=== PATIENT | female | born 1990 | race Two or more races ===

== ENCOUNTER 2019-10-12 08:22 | Emergency (ER) | payer OTHER ==
[~2019-10-12] VITALS: Ht 167.6 cm; Wt 54.4 kg
== END 2019-10-12 11:40 | disposition home or self-care (01) ==
LOC: ER 08:22
DX: J11.1 Influenza due to unidentified influenza virus with other respiratory manifestations (principal); J32.8 Other chronic sinusitis

== ENCOUNTER 2019-10-13 09:59 | Emergency (ER) | payer OTHER ==
[~2019-10-13] VITALS: Ht 167.6 cm; Wt 54.4 kg
== END 2019-10-13 11:10 | disposition left against medical advice (07) ==
LOC: ER 09:59
DX: Z53.20 Procedure and treatment not carried out because of patient's decision for unspecified reasons (principal)